=== PATIENT | female | born 1995 ===

== ENCOUNTER → 2020-08-29 | Outpatient (CLI) | payer BC ==
[~2020-08-29] MED LIST: CLEOCIN HCL300 MG PO; IBU600 MG PO; PERCOCET 325 MG1 TA2 PO; PRENATAL PO
== END ==
LOC: ZCOL.LAB 08:00
DX: Z53.8 Procedure and treatment not carried out for other reasons (principal)

== ENCOUNTER 2020-08-30 12:14 | Inpatient (IN) | payer BC ==
[~2020-08-30] VITALS: Ht 160.1 cm; Wt 93.9 kg
--- NOTE | 2020-08-30 19:30 | NUR ---
PT ARRIVED TO UNIT AMBULATORY WITH FOB. PT STATES SHE IS VERY ANXIOUS AND IS TEARFUL. QUESTIONS ENCOURAGED AND ANSWERED. PT ORIENTED TO ROOM CHANGED INTO GOWN, EFM X2 APPLIED, VS OBTAINED. NOTIFIED PT ON PLAN OF CARE FOR THE EVENING UNDERSTANDING VERBALIZED.
[2020-08-30 20:21] VITALS: BP 136/88; PULSE 104; TEMP 98.1
[2020-08-30] MEDS ORDERED: PRENATAL PO (20:25)
[2020-08-30 20:51] LABS: BASO % 0.3 % (0.0-2.0); EOS # 0.2 (0.0-0.7); EOS % 1.7 % (0-4.0); GRAN # 8.7 (1.4-6.5); GRAN % 72.1 % (42.2-75.2); HEMATOCRIT 42.2 % (37.0-47.0); HEMOGLOBIN 14.8 g/dl (12.5-16.0); LYMPH # 2.2 (1.2-3.4); LYMPH % 18.5 % (20.0-51.0); MEAN CELL VOLUME 92 fl (80.0-100.0); MEAN CORPUSCULAR HEMOGLOBIN 32 pg (27.0-31.0); MEAN CORPUSCULAR HGB CONC 35 g/dl (33.0-37.0); MEAN PLATELET VOLUME 9.8 fl (7.4-10.4); MONO # 0.9 (0.1-0.6); MONO % 7.1 % (1.7-9.3); PLATELET COUNT 202 K/mm3 (130-400); RED BLOOD COUNT 4.61 M/mm3 (4.10-5.30); REDCELL DISTRIBUTION WIDTH-CV 12.9 % (11.5-14.5)
[2020-08-31] VITALS (28 sets, daily range): BP systolic 97–143; BP diastolic 54–92; PULSE 65–112; TEMP 97.8–98.7
--- NOTE | 2020-08-31 06:20 | NUR ---
0620-Recieved bedside shift report from JESSICA Collins. Patient vocal and heavily breathing in pain with and without contracitons. Verbalizes anxiety. Reviewed plan of care with patient and options for pain management. Coached through contraction and encouraged cleansing breaths. Significant other on recliner sleeping. 0631-Patient leaning forward, FHR tracing interruption, RN to bedside to adjust.Patient asks to get up to bathroom. Assisted to bathroom. Returns to bedside and Repositioned LL. 0657-BARB cox per GBS + protocol and MD orders. FHR with two late decles down to 100-120bpm, Repositioned RL. 0709-Dr. Tovar called unit for udpated, See MD notification.
--- NOTE | 2020-08-31 07:35 | NUR ---
0735-Patient calls out to use the bathroom. Reports " I am leaking something." Trickle of fluid noted in perineum. Amnitest of fluid +. SVE 2-/-3, Bloody show and clear fluid noted. Patient requets epidural. Lizzette Scruggs CRNA notified of request. IVF bolus started. 805-Dr. Tovar called unit. Updated on patient SROM and request for epidural. MD reports having reviewed strip and he will be in to discuss plan of care with patient. 0815-BOBBI Sosa on unit and setting up for epidural. 18-Patient nauseated with heaves. 0836-Test dose administered by BOBBI Sosa. Patient tolerates procedure well. Repositioned LL. Dr. Tovar on unit reviewing FHR monitor. 0854-SVE by Dr. Tovar, /-2. IUPC placed, FSE placed. Repositioned WL. Updated on plan of care.
--- NOTE | 2020-08-31 09:03 | NUR ---
0903-Dr. Tovar remains on unit reviews recurrent late decels and orders to turn pitocin off. Pit off. Repositioned WL. 0915-Tom to DD, Cloudy, light parrish urine returned. Patient with heaves again and "feeling light headed." VSS, see flow record. at bedside discussing FHR decels with patient and need to deliver. 0920-Decision to head to c/s for delivery is made. 0923-4mg IV zofran given ,see EMAR. 0925-Patient off EFM and to OR via bed.
--- NOTE | 2020-08-31 10:20 | NUR ---
1020-Patient to PACU via bed. A&Ox4. FOB at bedside. Recieved report form Lizzette.BOBBI Scruggs. IVF to left hand, Tom to DD, VSS, Fundal massage firm, lochia WNL. Abdominal dressing C/D/I. Remained with patient per protocol.
[2020-08-31 12:56] LABS: COLLECTION METHOD CLEAN CATCH
[2020-08-31 13:04] LABS: ALBUMIN 3.6 gm/dL (3.5-5.0); BILIRUBIN,TOTAL 0.6 mg/dL (0.0-1.0); CALCIUM 9.5 mg/dL (8.4-10.2); CREATININE, serum 0.63 (0.52-1.25); POTASSIUM 4.1 mmol/L (3.4-5.0); TOTAL PROTEIN 6.7 gm/dL (6.4-8.2)
[2020-08-31 16:52] LABS: MUCOUS Present /lpf; PH 6 (5-8); URINE APPEARANCE Hazy; URINE BACTERIA Rare /hpf; URINE BILIRUBIN Negative (NEGATIVE); URINE BLOOD 1+ (NEGATIVE); URINE COLOR Yellow; URINE GLUCOSE Negative (NEGATIVE); URINE KETONE Negative (NEGATIVE); URINE LEUKOCYTE ESTERASE 3+ (NEGATIVE); URINE NITRATE Negative (NEGATIVE); URINE PROTEIN(semi-quant) 1+ (NEGATIVE); URINE UROBILINOGEN Negative (NEGATIVE); URINE WBC 20-50 /hpf
[2020-09-01 04:40] VITALS: BP 102/73; PULSE 91; TEMP 97.9
[2020-09-01 07:39] VITALS: BP 130/86; PULSE 86; TEMP 97.9
[2020-09-01] MEDS ORDERED: PERCOCET 325 MG1 TA2 PO (09:26)
[2020-09-01] MEDS ORDERED: CLEOCIN HCL300 MG PO (09:26)
[2020-09-01] MEDS ORDERED: IBU600 MG PO (09:26)
[2020-09-01 14:59] VITALS: BP 122/83; PULSE 86; TEMP 98.2
[2020-09-01 19:11] VITALS: BP 118/76; PULSE 87; TEMP 98.2
[2020-09-02 08:15] VITALS: BP 122/78; PULSE 89; TEMP 98.2
== END 2020-09-02 14:30 | disposition home or self-care (01) | DRG 788 ==
LOC: OB 12:14 → LDR 19:33 → OB 08-31 11:00
PROVIDERS: ADMIT Obstetrics & Gynecology
PROC: 10D00Z1 Extraction of Products of Conception, Low, Open Approach (ICD-10-PCS; principal; 2020-08-30)
DX: O48.0 Post-term pregnancy (principal); O75.89 Other specified complications of labor and delivery; B95.62 Methicillin resistant Staphylococcus aureus infection as the cause of diseases classified elsewhere; O76 Abnormality in fetal heart rate and rhythm complicating labor and delivery; O99.344 Other mental disorders complicating childbirth; Z37.0 Single live birth; Z3A.40 40 weeks gestation of pregnancy
CPT/HCPCS: J0690; J1885; J2405; J2540; J2590; J7120